=== PATIENT | female | born 1980 | race Caucasian/White ===

== ENCOUNTER 2017-03-24 21:29 | Emergency (ER) | payer OTHER ==
[2017-03-24] MEDS ORDERED: hydrOXYzine HCL 25 MG TAB PO ONE (22:30)
--- NOTE | 2017-03-24 22:32 | EDPHY ---
H & P Stated Complaint: R hand rash Time Seen by Provider: 03/24/17 21:58 HPI/ROS: HPI The patient presents with right hand rash which has been present for the last 3 days, though now spreading to her arm. It began with an itchy and burning sensation overlying her thenar eminence of her right hand. This is associated with some sensation of fullness, though she has no difficulty with range of motion. Today, the rash spread to her wrist and she is having some itching of her anterior upper arm. She has not had any fevers or chills. She denies any new exposures to lotions, soaps, detergents. She does not have any food allergies that she is aware of. She has not been sleeping well over the last 1 week. REVIEW OF SYSTEMS Constitutional: No fever, no chills. Eyes: No discharge. ENT: No sore throat. Cardiovascular: No chest pain, no palpitations. Respiratory: No cough, no shortness of breath. Gastrointestinal: No abdominal pain, no vomiting. Genitourinary: No hematuria. Musculoskeletal: No back pain. Skin: See HPI Neurological: No headache. PMHx: Healthy Soc Hx: Lives at home with partner in 1-year-old child PHYSICAL General Appearance: Alert, no distress Eyes: Pupils equal and round no pallor or injection ENT, Mouth: Mucous membranes moist Respiratory: Breathing comfortably Neurological: A&O, moves all extremities Skin: Warm and dry, right thenar eminence is tender to palpation, right wrist is tender to palpation, both are slightly erythematous, there is full range of motion of her hand and wrist, there is no lymphangitic streaking Musculoskeletal: Neck is supple non tender Extremities: symmetrical, full range of motion Psychiatric: Patient is oriented X 3, there is no agitation Source: Patient Exam Limitations: No limitations - Personal History LMP (Females 10-55): Now Current Tetanus/Diphtheria Vaccine: No Current Tetanus Diphtheria and Acellular Pertussis (TDAP): No Tetanus Vaccine Date: 03/05 - Medical/Surgical History Hx Asthma: No Hx Chronic Respiratory Disease: No Hx Diabetes: No Hx Cardiac Disease: No Hx Renal Disease: No Hx Cirrhosis: No Hx Alcoholism: No Hx HIV/AIDS: No Hx Splenectomy or Spleen Trauma: No - Social History Smoking Status: Never smoked Constitutional: Initial Vital Signs Temperature (C) 36.8 C 03/24/17 21:33 Heart Rate 63 03/24/17 21:33 Respiratory Rate 16 03/24/17 21:33 Blood Pressure 128/73 H 03/24/17 21:33 O2 Sat (%) 98 03/24/17 21:33 O2 Delivery Mode Room Air Allergies/Adverse Reactions: No Known Allergies Allergy (Unverified 05/04/15 17:24) Home Medications: Medication Instructions Recorded 1 tab PO DAILY 05/04/15 Enoxaparin [Lovenox 40 MG (*)] 40 mg SC DAILY #30 syr 05/19/15 Acyclovir 800 mg PO 5XD #35 tab 03/24/17 hydrOXYzine HCL [Vistaril 25MG] 25 mg PO Q6H PRN #20 tab 03/24/17 Medical Decision Making Differential Diagnosis: 36-year-old healthy female with right thenar eminence rash which is now spread to wrist. This is mostly itchy in nature though there is a component of burning pain. She is tender to palpation. She has full range of motion. There is no warmth. Differential diagnosis includes early varicella zoster without vesicles, fungal infection, urticaria, less likely cellulitis. Plan for treatment with antiviral for possible zoster. Will also give her a prescription for clotrimazole in the case this is fungal. I have instructed antihistamines for her pruritis. - Data Points Medications Given: Discontinued Medications Clotrimazole (Lotrimin 1%) 1 khoa TP BID OANH Stop: 04/23/17 22:44 Last Admin: 03/24/17 23:00 Dose: 1 tube Hydroxyzine HCl (Hydroxyzine Hcl) 25 mg PO EDNOW ONE Stop: 03/24/17 22:31 Last Admin: 03/24/17 23:00 Dose: 25 mg Departure - Departure Disposition: Home, Routine, Self-Care Clinical Impression: Rash Condition: Good Instructions: Acute Rash (ED) Additional Instructions: The cause of your rash is not entirely clear. It could be early shingles. Because of this I have given you a prescription for acyclovir. Please monitor your symptoms. You can start taking this at any time, but should certainly start taking it if you develop any worsening rash with vesicles (small clear red blisters). It is possible that your rash is a fungal infection as well. I have given you clotrimazole for this which you can use twice a day. I would like for you to follow up with the primary care provider I have listed below or the learning and development coordinator. You should be seen in 1-2 days for recheck unless your totally improved. You should use ice to help with the itching and burning feeling. Please return to the ER if you are worse in any way- if you develop a high fever , feel unwell, have vomiting. Referrals: Clarke Lora MD [[facility] [place] Primary Care Provider] - As per Instructions Mary Candelaria MD [Medical Doctor] - As per Instructions Prescriptions: Acyclovir 800 mg PO 5XD #35 tab hydrOXYzine HCL [Vistaril 25MG] 25 mg PO Q6H PRN #20 tab PRN Reason: Itching
[2017-03-24] MEDS ORDERED: CLOTRIMAZOLE 1% 15 GM CRTUBE TP SCH (22:45)
[2017-03-24 23:07] VITALS: BP 114/63; PULSE 68; RESP 18; TEMP 98.6; O2SAT 97
== END 2017-03-24 23:03 | disposition home or self-care (01) ==
DX: R21 Rash and other nonspecific skin eruption (principal)

== ENCOUNTER → 2017-07-03 | Outpatient (CLI) | payer OTHER | LOC: BMCIMAGING 13:59 | PROVIDERS: ATTEND Physician Assistant | DX: R20.0 Anesthesia of skin (principal) ==